=== PATIENT | female | born 1955 | race Caucasian/White ===

== ENCOUNTER → 2023-07-20 07:00 | Outpatient (REF) | payer MEDICARE, OTHER, SELFPAY | LOC: MRI 3T 07:00 | PROVIDERS: ATTENDING PHYSICIAN Physician Assistant Medical; FAMILY PHYSICIAN Family Medicine | DX: M25.562 Pain in left knee (principal) | CPT/HCPCS: 73721 ==

== ENCOUNTER → 2023-08-03 09:41 | Outpatient (REF) | payer MEDICARE, OTHER, SELFPAY | LOC: RAD 09:41 | PROVIDERS: ATTENDING PHYSICIAN Surgery; FAMILY PHYSICIAN Family Medicine | DX: K44.9 Diaphragmatic hernia without obstruction or gangrene (principal) | CPT/HCPCS: 74246 ==

== ENCOUNTER → 2023-08-27 11:20 | Outpatient (REF) | payer MEDICARE, OTHER, SELFPAY | LOC: WDC 11:20 | PROVIDERS: ATTENDING PHYSICIAN Nurse Practitioner Adult Health; FAMILY PHYSICIAN Family Medicine | DX: Z12.31 Encounter for screening mammogram for malignant neoplasm of breast (principal) | CPT/HCPCS: 77063; 77067 ==

== ENCOUNTER → 2024-02-09 09:31 | Outpatient (REF) | payer MEDICARE, OTHER, SELFPAY | LOC: MRI 3T 09:31 | PROVIDERS: ATTENDING PHYSICIAN Neurological Surgery; FAMILY PHYSICIAN Family Medicine | DX: I67.1 Cerebral aneurysm, nonruptured (principal) | CPT/HCPCS: 70544 ==

== ENCOUNTER → 2024-05-17 13:48 | Outpatient (REF) | payer MEDICARE, OTHER, SELFPAY | LOC: HWRCS 13:48 | PROVIDERS: ATTENDING PHYSICIAN Internal Medicine Cardiovascular Disease; FAMILY PHYSICIAN Family Medicine | DX: R06.09 Other forms of dyspnea (principal); R07.9 Chest pain, unspecified | CPT/HCPCS: 93306 ==

== ENCOUNTER → 2024-05-19 11:29 | Outpatient (REF) | payer MEDICARE, OTHER, SELFPAY | LOC: DHCBC/DCA 11:29 | PROVIDERS: ATTENDING PHYSICIAN Internal Medicine Cardiovascular Disease; FAMILY PHYSICIAN Family Medicine | DX: R06.09 Other forms of dyspnea (principal); R07.9 Chest pain, unspecified | CPT/HCPCS: 78452; 93017; A9500; J2785 ==

== ENCOUNTER → 2024-08-31 11:11 | Outpatient (REF) | payer MEDICARE, OTHER, SELFPAY | LOC: WDC 11:11 | PROVIDERS: ATTENDING PHYSICIAN Nurse Practitioner Adult Health; FAMILY PHYSICIAN Family Medicine | DX: Z12.31 Encounter for screening mammogram for malignant neoplasm of breast (principal) | CPT/HCPCS: 77063; 77067 ==

== ENCOUNTER → 2024-09-22 08:46 | Outpatient (REF) | payer MEDICARE, OTHER, SELFPAY | LOC: PAVMRI 08:46 | PROVIDERS: ATTENDING PHYSICIAN Specialist; FAMILY PHYSICIAN Family Medicine | DX: M54.16 Radiculopathy, lumbar region (principal) | CPT/HCPCS: 72148 ==

== ENCOUNTER → 2024-10-05 08:51 | Outpatient (REF) | payer MEDICARE, OTHER, SELFPAY | LOC: HWRAD 08:51 | PROVIDERS: ATTENDING PHYSICIAN Specialist; FAMILY PHYSICIAN Family Medicine | DX: R10.9 Unspecified abdominal pain (principal) | CPT/HCPCS: 76700 ==

== ENCOUNTER 2024-12-26 07:34 | Inpatient (IN) | payer MEDICARE, OTHER, SELFPAY ==
--- NOTE | 2024-12-19 12:04 | CM ---
Addendum entered by Shavon Contreras RN 12/20/24 13:32:
Demographics: confirmed
Living situation: lives with 2 story home
Support Person Post Operatively:
History of
VN: yes
SNF: NO
Outpatient: [facility]
Has patient purchased required equipment: yes
PCP: active
Pharmacy: [facility]
Post Operative Discharge Plan: Home with , outpatient PT.
Original Note:
CM reviewed medical records. CM left message to discuss discharge plan.
[2024-12-26] VITALS (15 sets, daily range): BP systolic 116–140; BP diastolic 53–77; BMI 36.6
[2024-12-26 08:20] LABS: Glucose - Point of Care 150 mg/dl (70-99)
[2024-12-26] MEDS: MOBIC 15 MG PO (08:28)
[2024-12-26] MEDS: TYLENOL 1000 MG PO ×2 (08:28→21:50)
[2024-12-26] MEDS: NORMOSOL-R/PLASMALYTE-A 1000 IV (08:30)
--- NOTE | 2024-12-26 08:59 | W.PN.UPDATE ---
Update Note
Progress Note Update
60F s/p RLE retrocalc w/ [facility] transfer
- strict NWB RLE
- PT/OT
- continue abx x24 hrs surgical ppx vs 3 doses
- dressings C/D/I
- will follow
[2024-12-26 11:17] LABS: Glucose - Point of Care 140 mg/dl (70-99)
--- NOTE | 2024-12-26 11:32 | HPS.HSE ---
Family Physician
-
Family Physician: Isabell Telles
Chief Complaint
-
Status post RLE retrocalc w/ [facility] transfer, admitting to hospitalist service for post-op pain and PT/OT
History of Present Illness
69 y/o female with past medical history of GERD, HTN, Type 2 Diabetes Mellitus, DON and additional history as listed in the Assessment/Plan section below, presented to the hospital for surgery for severe distal Achilles tendinopathy with
interstitial tearing. Podiatry requested hospitalist admission post-op for pain control. When patient was seen in PACU she denied any complaints except for some pain post-op.
Medical History
Past Medical History
Past Medical History: Reports Other (As Per HPI above and Assessment/Plan section below)
Past Surgical History: Reports Other ( per HPI above and Assessment/Plan section below)
Social History
Tobacco: Non-smoker
Alcohol: Occasional
Drug: None
Family History
Family History: Not pertinent
Allergies / Home Medications
Allergies reflects when Allergies were last updated in [facility].
Home Medications with original date entered in [facility]
Allergy/Medication List:
Allergies
Allergy/AdvReac Type Severity Reaction Status Date / Time
mefenamic acid Allergy Severe Unknown Verified 12/26/24 08:09
Penicillins Allergy Severe Rash Verified 12/26/24 08:09
Sulfa (Sulfonamide Allergy Severe Rash Verified 12/26/24 08:09
Antibiotics)
cephalexin Allergy Rash Verified 12/26/24 08:09
sulfamethoxazole (From Allergy Rash Verified 12/26/24 08:09
Bactrim)
trimethoprim (From Bactrim) Allergy Rash Verified 12/26/24 08:09
LEDERTEN Allergy Rash Uncoded 12/26/24 08:09
PONSTAN FORTE Allergy Rash Uncoded 12/26/24 08:09
Home Medications
acetaminophen 500 mg tablet 1,000 mg PO Q6H PRN pain 12/16/24
clindamycin HCl 150 mg capsule 450 mg PO DIRECTED PRN pre dental visits 12/16/24
escitalopram oxalate 20 mg tablet 20 mg PO HS 12/16/24
ezetimibe 10 mg tablet 10 mg PO HS 12/16/24
famotidine 40 mg tablet 40 mg PO HS 12/16/24
ibuprofen 200 mg tablet 200 - 400 mg PO Q6H PRN pain 12/16/24
lisinopril 20 mg tablet 20 mg PO DAILY 12/16/24
meloxicam 15 mg tablet 15 mg PO DAILY 12/16/24
metformin 500 mg tablet 500 mg PO DAILY 12/16/24
metoprolol succinate 50 mg tablet,extended release 24 hr 50 mg PO DAILY 12/16/24
omeprazole 40 mg capsule,delayed release 40 mg PO DAILY 12/16/24
Review of Systems
-
A 12 point ROS was completed and negative except as noted: Yes
Physical Exam
Vital Signs
Vital Signs
Temp Pulse Resp BP Pulse Ox
98.1 F 66 13 121/61 99
12/26/24 11:12 12/26/24 11:15 12/26/24 11:15 12/26/24 11:15 12/26/24 11:15
Physical Exam
General: No Apparent Distress and Comfortable
HEENT: NormoCephalic and Moist mucous membranes
Respiratory: Clear
Cardiac: S1/S2 and Regular Rhythm
GI: Soft, Non Tender and Normal Bowel Sounds
Musculoskeletal: No Cyanosis
Skin: Warm and Dry
Neuro: Awake, Alert, AO x 3 and Nonfocal/grossly intact
Psych: Calm and Intact Judgment/Insight
Impression/Plan
-
Assessment/Plan
Status post RLE retrocalc w/ [facility] transfer
Severe distal Achilles tendinopathy with interstitial tearing
-Admitted to hospitalist service for post-op pain and PT/OT
-Strict NWB RLE
-PT/OT
-Continue abx x24 hrs surgical ppx vs 3 doses as per podiatry
-Podiatry following
Type 2 Diabetes Mellitus
-Continue Diabetic Diet
Hyperlipidemia?
-HOLD Ezetimibe perioperatively
Hypertension
-If patient's blood pressure remains stable tomorrow, will resume LA inhibitor, as long as no contraindications are present
-Continue home Toprol XL (last dose was 12/26/24 morning)
GERD
-Continue Famotidine
-Continue home Omeprazole or equivalent (last dose was 12/26/24 morning)
DON/NAFLD
History of Liver Fibrosis
Sleep Apnea
-Uses CPAP at home
Moderate Aortic Insufficiency
Depression
-Hold home Escitalopram given risk of QTc prolongation in setting of Propofol and Zofran
Psoriasis
Irritable Bowel Syndrome
Splenic Artery Aneurysm
-Has history of coil embolization of splenic artery aneurysm at [facility]
History of Brain Cerebral Aneurysms
-See Dr. Missy Ansari
Restless Leg Syndrome
History of Mario Fundoplication
History of Left Wrist Surgery
History of Appendectomy
History of RT Knee Arthroscopy
History of Right and Left Knee Replacements
CELESTINE/BSO -- [place] -- 2003 -- Menorrhagia
Breast Reduction - [place]
Hiatal Hernia Repair - [place]
DVT Prophylaxis: Okay to start chemical DVT prophylaxis as per Dr. Moody Franco
Code Status: Full Code
[2024-12-26 12:44] LABS: Hematocrit 38.5 % (37.0-47.0); Hemoglobin 12.6 g/dL (12.0-16.0); Mean Corp Hgb Conc. 32.7 g/dL (33.0-37.0); Mean Corpuscular Volume 88.5 fL (81.0-99.0); Platelet Count 281 10^3/uL (130-400); Red Cell Dist. Width 13.1 % (11.5-14.5)
[2024-12-26 12:47] LABS: ALT (SGPT) 81 U/L (0-35); AST (SGOT) 71 U/L (14-36); Albumin 4.2 g/dl (3.5-5.0); Alkaline Phosphatase 95 U/L (38-126); Blood Urea Nitrogen 15 mg/dl (7-17); Calcium 8.8 mg/dl (8.4-10.2); Carbon Dioxide 26 mmol/L (22-30); Chloride 107 mmol/L (98-107); Estimated Creatinine Clearance 104 ml/min; Glucose 157 mg/dl (70-99); Magnesium 2.1 mg/dl (1.6-2.3); Potassium 5.5 mmol/L (3.5-5.1); Sodium 139 mmol/L (135-145); Total Protein 7.0 g/dl (6.3-8.2); eGFR > 60.00
--- NOTE | 2024-12-26 14:00 | PTCARENOTE ---
pt received form pacu. right foot dressing c/d/i. pulses present. pt roomed in pt states no pain. pt states that she has had h hernia repair in the past and does have slight difficulty swallowing. just has to take it slow and small bites.
[2024-12-26] MEDS: CLEOCIN 50 IV ×2 (14:08→20:12)
[2024-12-26] MEDS: NEURONTIN 300 MG PO ×2 (16:03→21:02)
[2024-12-26] MEDS: LOVENOX 40 MG SC (17:50)
[2024-12-26] MEDS: PEPCID 40 MG PO (21:02)
[2024-12-27] MEDS: CLEOCIN 50 IV (01:47)
[2024-12-27 03:00] VITALS: BP 122/62
[2024-12-27 06:55] VITALS: BP 158/64
[2024-12-27 07:59] LABS: Hematocrit 38.0 % (37.0-47.0); Hemoglobin 12.6 g/dL (12.0-16.0); Mean Corp Hgb Conc. 33.2 g/dL (33.0-37.0); Mean Corpuscular Volume 88.4 fL (81.0-99.0); Platelet Count 299 10^3/uL (130-400); Red Cell Dist. Width 13.2 % (11.5-14.5)
--- NOTE | 2024-12-27 08:34 | W.PN.HOSP.TC ---
Today's Communication/Plan
-
Discharge today
Assessment / Plan
Assessment / Plan
Physical Exam
General: No Apparent Distress and Comfortable
HEENT: NormoCephalic and Moist mucous membranes
Respiratory: Clear
Cardiac: S1/S2 and Regular Rhythm
GI: Soft, Non Tender and Normal Bowel Sounds
Musculoskeletal: No Cyanosis
Skin: Warm and Dry
Neuro: Awake, Alert, AO x 3 and Nonfocal/grossly intact
Psych: Calm and Intact Judgment/Insight
Assessment/Plan
69 y/o female with past medical history of GERD, HTN, Type 2 Diabetes Mellitus, DON and additional history as listed in the Assessment/Plan section below, presented to the hospital for surgery for severe distal Achilles tendinopathy with
interstitial tearing. Podiatry requested hospitalist admission post-op for pain control. When patient was seen in PACU she denied any complaints except for some pain post-op.
Status post RLE retrocalc w/ [facility] transfer
Severe distal Achilles tendinopathy with interstitial tearing
-Admitted to hospitalist service for post-op pain and PT/OT
-Strict NWB RLE
-PT/OT
-Continue abx x24 hrs surgical ppx vs 3 doses as per podiatry
-Podiatry following
-Patient can take over the counter Tylenol (max of 2 grams per day given her liver condition) or limited amount of Ibuprofen outpatient
-Has not needed narcotic pain medications in hospital post-op
Type 2 Diabetes Mellitus
-Continue Diabetic Diet
-Hold Metformin on discharge -- patient will discuss with outpatient PCP whether to continue it and if so, when
Hyperlipidemia?
-HOLD Ezetimibe perioperatively -- re-evaluate resuming it outpatent
Hypertension
-Hold Lisinopril on discharge -- discuss resuming Lisinopril with outpatient PCP
-Continue home Toprol XL (last dose was 12/26/24 morning) -- BP and HR good on the beta jc along
GERD
-Continue Famotidine
-Continue home Omeprazole or equivalent (last dose was 12/26/24 morning)
DON/NAFLD
History of Liver Fibrosis
Sleep Apnea
-Uses CPAP at home
Moderate Aortic Insufficiency
Depression
-Hold home Escitalopram given risk of QTc prolongation in setting of Propofol and Zofran
Psoriasis
Irritable Bowel Syndrome
Splenic Artery Aneurysm
-Has history of coil embolization of splenic artery aneurysm at [facility]
History of Brain Cerebral Aneurysms
-See Dr. Missy Ansari
Restless Leg Syndrome
History of Mario Fundoplication
History of Left Wrist Surgery
History of Appendectomy
History of RT Knee Arthroscopy
History of Right and Left Knee Replacements
CELESTINE/BSO -- [place] -- 2003 -- Menorrhagia
Breast Reduction - [place]
Hiatal Hernia Repair - [place]
DVT Prophylaxis: Lovenox
Code Status: Full Code
More than 30 minutes spent in discharge including
Final examination of the patient
Summarizing hospital stay
Instructions for continuing care to all relevant caregivers
Preparation of discharge records, prescriptions, and referral forms
Total time spent (in minutes): 39
Anticipated Discharge: Today
Subjective/Interval History
-
Date of Service: December 27, 2024
Patient was seen and examined. She mentioned that she is looking forward to going home today, she fell in bathroom, it was a mechanical fall while she was reaching for the garbage can, she fell on her left buttocks. She did not hit her head or
injure any other parts of her body. She said she is okay and not concerned about the fall and it is not really bothering her. She denied any prodromal symptoms -- no chest pain, dizziness or any other complaints right before the fall.
Objective Data
-
Labs:
Laboratory Results
12/27/24
07:48
WBC 14.6 H
Hgb 12.6
Hct 38.0
Plt Count 299
Sodium Pending
Potassium Pending
Chloride Pending
Carbon Dioxide Pending
BUN Pending
Creatinine Pending
Glucose Pending
Calcium Pending
Total Bilirubin Pending
AST Pending
ALT Pending
Alkaline Phosphatase Pending
Vital Signs:
Vital Signs
Temp Pulse Resp BP Pulse Ox
97.7 F 74 16 158/64 98
12/27/24 06:55 12/27/24 06:55 12/27/24 06:55 12/27/24 06:55 12/27/24 06:55
I&O
12/26/24 12/27/24 12/28/24
06:59 06:59 06:59
Intake Total 300 / 300
Balance 300 / 300
[2024-12-27 08:48] LABS: ALT (SGPT) 90 U/L (0-35); AST (SGOT) 62 U/L (14-36); Albumin 4.3 g/dl (3.5-5.0); Alkaline Phosphatase 94 U/L (38-126); Blood Urea Nitrogen 18 mg/dl (7-17); Calcium 9.4 mg/dl (8.4-10.2); Carbon Dioxide 24 mmol/L (22-30); Chloride 108 mmol/L (98-107); Estimated Creatinine Clearance 104 ml/min; Glucose 152 mg/dl (70-99); Potassium 4.5 mmol/L (3.5-5.1); Sodium 140 mmol/L (135-145); Total Protein 7.2 g/dl (6.3-8.2); eGFR > 60.00
--- NOTE | 2024-12-27 09:06 | W.PN.UPDATE ---
Update Note
Progress Note Update
60F s/p RLE retrocalc w/ [facility] transfer. Doing well this AM, no complaints. CFT wnl, sensaiton intact to pedal distributions, motor function intact
- strict NWB RLE
- PT/OT
- dressings C/D/I
- pt stable for dc to follow up in office
[2024-12-27] MEDS: TOPROL XL 50 MG PO (09:11)
[2024-12-27] MEDS: NEURONTIN 300 MG PO ×2 (09:11→15:42)
[2024-12-27] MEDS: PROTONIX 40 MG PO (09:11)
--- NOTE | 2024-12-27 10:44 | PTCARENOTE ---
0800 Pt pulled bathroom alarm. Pt found to be on the floor. Pt states she lost her footing and fell while trying to put something in the trash. VSS. No reports of hitting head, lightheadedness or dizziness. made aware. Assisted Pt back to bed and
educated on using call ferrer/ waiting for nurse to assist Pt to BR. Care on going at this time.
[2024-12-27 11:06] VITALS: BP 132/60
[2024-12-27] MEDS: MOTRIN 600 MG PO (11:09)
[2024-12-27 12:29] VITALS: BP 150/67; PULSE 64; O2SAT 96
--- NOTE | 2024-12-27 12:37 | CM ---
CM following re: discharge planning.
Reviewed pt's chart, met with pt.
Pt is a 69 year old female admitted with primary dx of s/p RLE retrocele w/ [facility] transfer.
Pt reports she lives with [facility], 3 steps to enter, has 2 children and they live in [facility] [place]. Pt reports she uses knee scooter, has a walker and a cane.
PT and POT evaluations noted - home PT/OT recommended. pt is aware, expressed her agreement and she preferred [facility]. A referral to [facility] made.
IMM reviewed, placed on chart, pt has a copy.
[facility] discharge instructions fax: [phone]
D/c plan: home with [facility] and family support. to transport.
--- NOTE | 2024-12-27 13:49 | VNURNOTE ---
Home Health Liaison met with patient at bedside to discuss [facility] nurse/therapy, visits, schedule and homebound status. Patient is agreeable and understands that visits at home will be 2-3 x per week to assess and teach medical management. Patient
is aware that [facility] will contact them for start of care in 1-2 days after discharge from . Provided contact number for [facility].
[facility] referral completed in [facility].
[2024-12-27 15:00] VITALS: BP 153/70
--- NOTE | 2024-12-27 15:38 | W.DCSUMMARY ---
Discharge Summary
Discharge Data
Date of Admission: 12/26/24
Date of Discharge: 12/27/24
Total time spent discharging patient (in min): 39
-
Pending Results: No
Hospital Course
69 y/o female with past medical history of GERD, HTN, Type 2 Diabetes Mellitus, DON and additional history as listed below, presented to the hospital for surgery for severe distal Achilles tendinopathy with interstitial tearing, surgeon was
Bernard Iverson. Podiatry requested hospitalist admission post-op for pain control. When patient was seen post-op in PACU, she denied any complaints except for some pain post-op. Some of patient's routine medications were held post-op with plans to
resume outpatient during close outpatient follow-up. She had a mechanical fall post-op due to the fact that she turned in an awkward angle to throw some garbage out, but she did not have dizziness, chest pain, fever, shortness of breath or any other
issue. She landed on her left hip/left buttock area, she said it was mild discomfort but that she was not concerned about it and that she was okay. Patient was doing well on the day of discharge stable for close outpatient follow-up.
Discharge Plan
-
Patient Disposition: Home with Home Care
Discharge Diagnosis/Procedures: Status post RLE retrocalc w/ [facility] transfer
Severe distal Achilles tendinopathy with interstitial tearing
Mechanical Fall with left buttock impact with no significant pain or injury afterwards
Type 2 Diabetes Mellitus
Hyperlipidemia?
Hypertension
GERD
DON/NAFLD
History of Liver Fibrosis
Sleep Apnea
Moderate Aortic Insufficiency
Depression
Psoriasis
Irritable Bowel Syndrome
Splenic Artery Aneurysm -- history of coil embolization of splenic artery aneurysm at [facility]
History of Brain Cerebral Aneurysms - sees Dr. Missy Ansari
Restless Leg Syndrome
History of Mario Fundoplication
History of Left Wrist Surgery
History of Appendectomy
History of RT Knee Arthroscopy
History of Right and Left Knee Replacements
CELESTINE/BSO -- [place] -- 2003 -- Menorrhagia
Breast Reduction - [place]
Hiatal Hernia Repair - [place]
Condition: Good
Diet: Low Fat, Low Cholesterol, Low Sodium and Diabetic, Carb Controlled
Activity: Other activity
Additional Activity: STRICT NWB RLE
Blood Work: CBC and CMP with your primary care provider in 2 to 3 days outpatient
Other Services: PT and OT
Activity Restrictions/Additional Instructions:
Patient can take over the counter Tylenol (max of 2 grams per day given her liver condition) or limited amount of Ibuprofen outpatient (Ibuprofen can have significant side effects so better to avoid it if possible).
ACTIVITY RESTRICTIONS: Strict NWB RLE
Referrals:
Isabell Telles MD [Family Provider, [facility]]
Additional Discharge Medication Instructions: Polyethylene Glycol is a new medication as needed for constipation.
Hold Metformin on discharge -- patient will discuss with outpatient PCP (this week) whether to continue it and if so, when.
Hold Ezetimibe perioperatively -- re-evaluate resuming it outpatient with PCP this week
Hold Lisinopril on discharge -- discuss resuming Lisinopril with outpatient PCP
Hold home Escitalopram given risk of QTc prolongation in setting of Propofol anesthesia -- discuss resuming it with outpatient provider
Tylenol can be taken over the counter as needed for pain up to 1000 mg to 2000 mg per day maximum given your liver condition.
Dr. Bernard Iverson (dry pan feeder) will send Gabapentin to your pharmacy.
Prescriptions:
New
polyethylene glycol 3350 17 gram Powder In Packet
17 g PO DAILYPRN PRN (Reason: constipation) Qty: 30 0RF
Continued
metoprolol succinate 50 mg Tablet Extended Release 24 Hr
50 mg PO DAILY
famotidine 40 mg Tablet
40 mg PO HS
omeprazole 40 mg Capsule,Delayed Release(Dr/Ec)
40 mg PO DAILY
clindamycin HCl 150 mg Capsule
450 mg PO DIRECTED PRN (Reason: pre dental visits)
Held
metformin 500 mg Tablet
500 mg PO DAILY
Hold Instructions: Resume on 01/10/25.
lisinopril 20 mg Tablet
20 mg PO DAILY
Hold Instructions: Resume on 01/06/25.
escitalopram oxalate 20 mg Tablet
20 mg PO HS
Hold Instructions: Resume on 01/10/25.
ezetimibe 10 mg Tablet
10 mg PO HS
Hold Instructions: Resume on 01/09/25.
Discontinued
meloxicam 15 mg Tablet
15 mg PO DAILY
acetaminophen 500 mg Tablet
1,000 mg PO Q6H PRN (Reason: pain)
ibuprofen 200 mg Tablet
200 - 400 mg PO Q6H PRN (Reason: pain)
Discharge Orders:
Discharge Patient (As Directed); Ordered 12/27/24
Ordered By: Espinoza Blount
Discharge Date and Time
Discharge Date/Time: 12/27/24 16:45
Print Language: CITIZEN OF [place]
== END 2024-12-27 16:45 | disposition home health service (06) | DRG 502 ==
LOC: 2 SOUTH 07:34
PROVIDERS: ADMITTING PHYSICIAN Student in an Organized Health Care Education/Training Program; ATTENDING PHYSICIAN Hospitalist; FAMILY PHYSICIAN Family Medicine; REFERRING PHYSICIAN Internal Medicine Cardiovascular Disease
PROC: 0LUN07Z Supplement Right Lower Leg Tendon with Autologous Tissue Substitute, Open Approach (ICD-10-PCS; 2024-12-26)
PROC: 0QBL0ZZ Excision of Right Tarsal, Open Approach (ICD-10-PCS; 2024-12-26)
PROC: 0LBN0ZZ Excision of Right Lower Leg Tendon, Open Approach (ICD-10-PCS; 2024-12-26)
DX: M76.61 Achilles tendinitis, right leg (principal); M89.9 Disorder of bone, unspecified; M77.51 Other enthesopathy of right foot and ankle; K21.9 Gastro-esophageal reflux disease without esophagitis; I10 Essential (primary) hypertension; E11.9 Type 2 diabetes mellitus without complications; F32.A Depression, unspecified; Z88.0 Allergy status to penicillin; Z88.1 Allergy status to other antibiotic agents; Z88.2 Allergy status to sulfonamides; G25.81 Restless legs syndrome; E78.5 Hyperlipidemia, unspecified; K76.0 Fatty (change of) liver, not elsewhere classified; G47.30 Sleep apnea, unspecified; L40.9 Psoriasis, unspecified; K58.9 Irritable bowel syndrome, unspecified; Z90.49 Acquired absence of other specified parts of digestive tract; Z96.653 Presence of artificial knee joint, bilateral; N92.0 Excessive and frequent menstruation with regular cycle
CPT/HCPCS: 73600; 76000; 80053; 82962; 83735; 85027; 97163; 97167

== ENCOUNTER → 2025-02-09 09:00 | Outpatient (REF) | payer MEDICARE, OTHER, SELFPAY | LOC: MRI 3T 09:00 | PROVIDERS: ATTENDING PHYSICIAN Neurological Surgery; FAMILY PHYSICIAN Family Medicine | DX: I67.1 Cerebral aneurysm, nonruptured (principal) | CPT/HCPCS: 70544 ==

== ENCOUNTER → 2025-04-09 13:38 | Outpatient (REF) | payer MEDICARE, OTHER, SELFPAY | LOC: PAVMRI 13:38 | PROVIDERS: ATTENDING PHYSICIAN Student in an Organized Health Care Education/Training Program; FAMILY PHYSICIAN Family Medicine | DX: M25.572 Pain in left ankle and joints of left foot (principal) | CPT/HCPCS: 73721 ==